=== PATIENT | female | born 1990 | race Caucasian/White ===

== ENCOUNTER 2019-09-18 15:16 | Outpatient (CLI) | payer BC ==
[~2019-09-18] VITALS: Ht 165.1 cm; Wt 70.5 kg
--- NOTE | 2019-09-18 15:25 | NUR ---
Patient ambulatory to LR4 with spouse, changed into gown, FHR/TOCO on. Patient states she has been mary every 3 minutes for a couple of hours. Denies leaking of fluid/vaginal bleeding/decreased movement. Plan of care discussed. SAMI García RN-50/-2
[2019-09-18] MEDS ORDERED: PRENATAL TABLET PO (15:31)
[2019-09-18 16:00] VITALS: BP 117/73; PULSE 81; TEMP 97.6
--- NOTE | 2019-09-18 16:25 | NUR ---
SVE per this RN 4-5/50/-2 Patient off monitor to void/ambulate Dr. Coburn notifed and orders to discharge home. 1650: Patient updated on plan of care and back on monitor. 1711: Patient off monitor and given discharge instructions and agrees and understands. 1720: Patient ambulates off unit with spouse.
== END 2019-09-18 17:20 | disposition home or self-care (01) ==
LOC: LDRO 15:16 → LDR 16:55 → LDRO 17:20
DX: O62.9 Abnormality of forces of labor, unspecified (principal); Z3A.40 40 weeks gestation of pregnancy
CPT/HCPCS: OP

== ENCOUNTER 2019-09-19 04:44 | Inpatient (IN) | payer BC ==
[~2019-09-19] VITALS: Ht 165.1 cm; Wt 70.5 kg
[2019-09-19] VITALS (21 sets, daily range): BP systolic 99–119; BP diastolic 50–75; PULSE 67–94; TEMP 97.8–98.8
[~2019-09-19 04:44] MED LIST: PRENATAL TABLET PO
--- NOTE | 2019-09-19 06:20 | NUR ---
Report from Osbaldo GAONA to assume care of patient at this time.
--- NOTE | 2019-09-19 06:25 | NUR ---
to bedside. AROM at 0627, small amount of meconium fluid noted. SVE 8/100/-2 per provider. Patient instructed to notify RN with rectal pressure or urge to push.
--- NOTE | 2019-09-19 06:45 | NUR ---
Patient given Tums for heartburn, see eMAR. Patient reports nausea but denies need for Zofran. VS WNL. Bolus dose given by Armani URRUTIA at this time. Denies needs, call light within reach.
--- NOTE | 2019-09-19 06:48 | NUR ---
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 0525 PT SIT UP ON EDGE OF BED FOR EPIDURAL PLACEMENT, 0530 EPIDURAL SPACE AND DOES GIVEN. 0533 TEST DOSE GIVEN, PT LAID DOWN AND POSITIONED TO A WEDGED RT POSITION.
[2019-09-19 06:52] LABS: BASO % 0.3 % (0.0-2.0); EOS % 0.2 % (0-4.0); GRAN # 9.1 (1.4-6.5); GRAN % 82.7 % (42.2-75.2); HEMOGLOBIN 10.4 g/dl (12.5-16.0); LYMPH # 1.2 (1.2-3.4); MEAN CELL VOLUME 93 fl (80.0-100.0); MEAN CORPUSCULAR HEMOGLOBIN 31 pg (27.0-31.0); MEAN CORPUSCULAR HGB CONC 33 g/dl (33.0-37.0); MEAN PLATELET VOLUME 10.9 fl (7.4-10.4); MONO # 0.5 (0.1-0.6); MONO % 4.8 % (1.7-9.3); PLATELET COUNT 153 K/mm3 (130-400); RED BLOOD COUNT 3.37 M/mm3 (4.10-5.30); REDCELL DISTRIBUTION WIDTH-CV 12.7 % (11.5-14.5)
[2019-09-19 06:56] LABS: HEMATOCRIT 31.4 % (37.0-47.0)
--- NOTE | 2019-09-19 07:30 | NUR ---
0705: to bedside. SVE Complete/+2. Nursery notified. 0710: Initial push. 0715: Spontaneous vaginal delivery of viable male infant assisted by . Tight nuchal cord cut by at perineum. Infant care assumed by Cris GAONA at this time. 0718: Spontaneous delivery of placenta assisted by at this time. Pitocin infusing at 333ml/hr. Fundus firm, lochia scant. 0720: Curette used by to remove retained placenta. 3-0 Chromic SH used to repair superficial perineal laceration. 0729: Red Gage Catheter used to drain bladder, approximately 400ml dark yellow urine noted. 0730: Recovery period started. Fundus firm at D2, scant lochia noted.
--- NOTE | 2019-09-19 09:30 | NUR ---
Patient up to bathroom with standby assist. Voids without difficulty. Patient to nursery via wheelchair to watch infant bath, then to Room 215. Oriented to room, plan of care discussed, questions answered.
[2019-09-20 02:00] VITALS: BP 108/50; PULSE 70
[2019-09-20 06:55] VITALS: BP 103/65; PULSE 62; TEMP 97.9
[2019-09-20] MEDS ORDERED: IBU600 MG PO (09:30)
== END 2019-09-20 13:05 | disposition home or self-care (01) | DRG 798 ==
LOC: LDRO 04:44 → LDR 05:06 → OB 10:00
PROVIDERS: ADMIT Obstetrics & Gynecology
PROC: 10E0XZZ Delivery of Products of Conception, External Approach (ICD-10-PCS; principal; 2019-09-19)
PROC: 10D17ZZ Extraction of Products of Conception, Retained, Via Natural or Artificial Opening (ICD-10-PCS; 2019-09-19)
PROC: 0HQ9XZZ Repair Perineum Skin, External Approach (ICD-10-PCS; 2019-09-19)
DX: O48.0 Post-term pregnancy (principal); Z37.0 Single live birth; Z3A.40 40 weeks gestation of pregnancy; O73.0 Retained placenta without hemorrhage; O77.0 Labor and delivery complicated by meconium in amniotic fluid; O70.0 First degree perineal laceration during delivery; O69.81X0 Labor and delivery complicated by cord around neck, without compression, not applicable or unspecified
CPT/HCPCS: J1580; J2590; J7120